=== PATIENT | female | born 1940 | race American Indian/Alaskan Native ===

== ENCOUNTER 2018-07-12 13:49 | Emergency (ER) | payer OTHER ==
[2018-07-12] MEDS ORDERED: Sodium Chloride 0.9% 500 ML IV ONE (14:37)
--- NOTE | 2018-07-12 14:37 | C.PDOC ---
History Of Present Illness 78 y/o female pt with hx of HTN, chronic knee pain, chronic cough and SHx smoking presents to the ER c/o abdominal pain and diarrhea for x4 days. Pt reports of worsening chronic knee pain and chronic coughing as she is smoker. Pt is a poor historian. Pt denies trauma, fever, SOB, chest pain or any other associated sx/complaints at this time. Time Seen by Provider: 07/12/18 13:56 Chief Complaint (Nursing): GI Problem History Per: Patient History/Exam Limitations: no limitations Onset/Duration Of Symptoms: Days (x4) Current Symptoms Are (Timing): Still Present Past Medical History Reviewed: Historical Data, Nursing Documentation, Vital Signs Vital Signs: Last Vital Signs Temp 98.2 F 07/12/18 13:59 Pulse 63 07/12/18 13:59 Resp 18 07/12/18 13:59 BP 173/96 H 07/12/18 13:59 Pulse Ox 98 07/12/18 13:59 - Medical History PMH: HTN, Hypercholesterolemia Other PMH: chronic cough and chronic knee pain Family History: States: No Known Family Hx - Social History Hx Tobacco Use: Yes Hx Alcohol Use: No Hx Substance Use: No - Immunization History Hx Tetanus Toxoid Vaccination: No Hx Influenza Vaccination: Yes Hx Pneumococcal Vaccination: No Review Of Systems Except As Marked, All Systems Reviewed And Found Negative. Constitutional: Negative for: Fever, Other (trauma) Cardiovascular: Negative for: Chest Pain Respiratory: Negative for: Shortness of Breath Gastrointestinal: Positive for: Abdominal Pain, Diarrhea Physical Exam - Physical Exam Appears: Non-toxic, No Acute Distress Skin: Warm, Diaphoretic Head: Normacephalic Eye(s): bilateral: Normal Inspection Throat: Normal Chest: Symmetrical Cardiovascular: Rhythm Regular Respiratory: Normal Breath Sounds Gastrointestinal/Abdominal: Bowel Sounds (normal; active), Soft, Tenderness (mild ), No Distention, No Guarding, No Rebound Extremity: Normal ROM (x4), Tenderness (mild knee; non focal ), No Pedal Edema, No Calf Tenderness, Capillary Refill (<2 sec), No Deformity, No Swelling Neurological/Psych: Oriented x3, Normal Speech, Normal Cognition, Normal Motor, Normal Sensation, No Other (neuro deficit) ED Course And Treatment - Laboratory Results Result Diagrams: 07/12/18 15:29 07/12/18 15:29 O2 Sat by Pulse Oximetry: 98 (RA) Pulse Ox Interpretation: Normal - Other Rad chest X-Ray: Read By Radiologist Interpretation: Accession No. : [id number]. Patient Name / ID : NAYAN CROWDER / [id number]. Exam Date : 07/12/2018 14:39:03 ( Approved ). Study Comment : Sex / Age : F / 78Y. Creator : Reza Parekh MD. Dictator : Reza Parekh MD. Industrial [employer] Servicer : Assistant Associate Professor : Reza Parekh MD. Approver2 : Report Date : 07/12/2018 15:20:37. My Comment : . Chest x-ray single frontal view. HISTORY: Chest pain. COMPARISON: None available. Findings: Biapical pleural thickening with upper lobe granulomatous changes. Moderate venous congestion. Patchy areas of nodular consolidation at the right lung base. Scattered areas of linear atelectasis seen at both lung bases. Small nodular densities within the right mid lung zone. Enlarged ectatic aorta. Cardiomegaly. Degenerative changes in the spine and shoulders. Impression: Biapical pleural thickening with upper lobe granulomatous changes. Moderate venous congestion. Patchy areas of nodular consolidation at the right lung base. Scattered areas of linear atelectasis seen at both lung bases. Small nodular densities within the right mid lung zone. Enlarged ectatic aorta. Cardiomegaly. Degenerative changes in the spine and shoulders. knee X-Ray: Read By Radiologist Interpretation: Accession No. : [id number]. Patient Name / ID : NAYAN CROWDER / [id number]. Exam Date : 07/12/2018 14:39:22 ( Approved ). Study Comment : Sex / Age : F / 78Y. Creator : Reza Parekh MD. Dictator : Reza Parekh MD. Industrial Gas Servicer : Assistant Associate Professor : Reza Parekh MD. Approver2 : Report Date : 07/12/2018 17:06:14. My Comment : . Bilateral knees four views. HISTORY: Chronic knee pain. Comparison: None available. Findings: Right knee: Severe medial compartment joint space narrowing with subchondral sclerosis, subchondral cyst formation, and articular surface remodeling. Severe patellofemoral compartment joint space narrowing with subchondral sclerosis and osteophytosis. Question loose body at the inferior aspect of the patellofemoral joint space. No gross suprapatellar joint effusion. Left knee: Severe medial compartment joint space narrowing with subchondral sclerosis and osteophytosis. Severe patellofemoral compartment joint space narrowing with subchondral sclerosis and osteophytosis. Enthesopathic change noted at the superior bony patella. Small loose osteochondral body at the superior aspect of the suprapatellar joint space. Vascular calcifications. Impression: Severe degenerative changes of the bilateral knees as described above. If pain persists, consider correlation with MRI. - CT Scan/US CT abdomen and pelvis Other Rad Studies (CT/US): Read By Radiologist, Radiology Report Reviewed CT/US Interpretation: Name:LAKESHA SPICER Exam Date:Jul 12, 2018 4:58:33 PM EDT. Modality Type:CT. Description:CT - CHEST, ABDOMEN & PELVIS. Gender:F Laterality:Not applicable. :38 Referring Physician:Clifford White (DO). EXAM: CT Chest with Intravenous Contrast. CT Abdomen and Pelvis with Intravenous Contrast. CLINICAL HISTORY: Cough, left side abd pain. TECHNIQUE: Axial computed tomography images of the chest, abdomen and pelvis with intravenous contrast. 0.00 mGy-cm. CONTRAST: With; 100MLS VISI 320. COMPARISON: None provided. FINDINGS: CHEST: LUNGS: There is mild patchy alveolar density as well as scarring both lower lungs. There is no suspicious mass or consolidation. PLEURAL SPACES: No evidence of pneumothorax. No pleural effusion. HEART: No cardiomegaly. No significant pericardial effusion. LYMPH NODES: No lymphadenopathy is evident. ABDOMEN AND PELVIS: LIVER: Unremarkable. No focal lesions. GALLBLADDER AND BILE DUCTS: Gallstone and distended gallbladder.. PANCREAS: Unremarkable. SPLEEN: Unremarkable. ADRENAL GLANDS: Unremarkable. KIDNEYS, URETERS, AND BLADDER: Unremarkable. No hydronephrosis or nephrolithiasis. No uterteral or bladder calculi. Moderately enlarged partially calcified fibroid uterus. Left ovarian cystic mass measuring 2.5 x 3.4 cm. STOMACH AND BOWEL: Unremarkable appearance of the stomach and bowel. No evidence of bowel obstruction. No evidence suggesting enteritis or colitis. Diverticular changes sigmoid and descending colon. APPENDIX: No evidence of acute appendicitis on CT examination. PERITONEUM: No free fluid. No free air. LYMPH NODES: No lymphadenopathy is evident. VASCULATURE: Advanced atherosclerotic change abdominal aorta and iliac vessels. BONES: There is advanced diffuse hypertrophic and degenerative changes thoracic and lumbosacral spine. IMPRESSION: Mild patchy alveolar density both lower lungs as well as scarring both lower lungs. Gallstone in a distended gallbladder. A moderately enlarged partially calcified fibroid uterus. Left ovarian cystic mass measuring 2.5 x 3.4 cm. Diverticular changes sigmoid and descending colon. Advanced atherosclerotic change abdominal aorta and iliac vessels. Veins hypertrophic and degenerative changes thoracic and lumbar spine. . Electronically signed on Jul 12, 2018 6:05:49 PM EDT by: Aubrey Mcgee M.D., Certified by [facility]BR, Diagnostic Radiology Medical Decision Making Medical Decision Making: ro acute abdominal pathology, pneumonia, fracture plans: -- chem labs -- blood work -- CXR -- Knee XR -- IV fluids -- Tylenol labs show no leukcytosis, no fever. ct shows gallstone. bedside us no e/o of choleysittis no wall thickening no sonographic hernández. neg hernández. no pericholec ysitic fluid. pt states pain improved. as pt lives by herself, i offered observation for PT eval, and further eval of her abdominal pain. she declines specifically requesting dc. she is notified of all incidental findings on ct and given ct report with specific instructions to f/u outpt with specialists. she verbalzies understadning. pt is seen taking po in nad in er. acute francisca unlikely. Disposition - Disposition Referrals: [facility] [Outside] [facility] [Outside] [facility] [Outside] Dung Gomez MD [Staff Provider] - Tuyet Rahman DO [Staff Provider] - Disposition: HOME/ ROUTINE Disposition Time: 18:00 Condition: STABLE Additional Instructions: please discuss all results with your doctor. you will need further testing as an outpatient. you may need biopsy of your ovary. you may need surgery for your gallbladder. please see specilaists as soon as soon as possible. return to any er with worsening. Instructions: Ovarian Cysts, Acute Abdomen (Belly Pain), Uterine Fibroids (DC), Gallstones (DC) Forms: Metaps (N[place]ien) - Clinical Impression Clinical Impression: Gallstone, Knee pain - Scribe Statement The provider has reviewed the documentation as recorded by the Joselito Vargas Do Provider Attestation: All medical record entries made by the Scribe were at my direction and personally dictated by me. I have reviewed the chart and agree that the record accurately reflects my personal performance of the history, physical exam, medical decision making, and the department course for this patient. I have also personally directed, reviewed, and agree with the discharge instructions and disposition.
[2018-07-12] MEDS ORDERED: Sodium Chloride 0.9% 1,000 ML ONE (15:23)
--- NOTE | 2018-07-12 15:24 | RAD ---
Chest x-ray single frontal view HISTORY: Chest pain. COMPARISON: None available. Findings: Biapical pleural thickening with upper lobe granulomatous changes. Moderate venous congestion. Patchy areas of nodular consolidation at the right lung base. Scattered areas of linear atelectasis seen at both lung bases. Small nodular densities within the right mid lung zone. Enlarged ectatic aorta. Cardiomegaly. Degenerative changes in the spine and shoulders. Impression: Biapical pleural thickening with upper lobe granulomatous changes. Moderate venous congestion. Patchy areas of nodular consolidation at the right lung base. Scattered areas of linear atelectasis seen at both lung bases. Small nodular densities within the right mid lung zone. Enlarged ectatic aorta. Cardiomegaly. Degenerative changes in the spine and shoulders.
[2018-07-12 15:36] LABS: BASO % 0.2 % (0.0-2.0); EOS # 0.1 K/uL (0.0-0.7); EOS % 1.1 % (0.0-4.0); HEMOGLOBIN 10.2 g/dL (11.0-16.0); LYMPH # 1.6 K/uL (1.0-4.3); MEAN CORPUSCULAR HEMOGLOBIN 29.4 pg (27.0-31.0); MEAN CORPUSCULAR HGB CONC 33.4 g/dL (33.0-37.0); MONO # 0.4 K/uL (0.0-0.8); MONO % 5.3 % (0.0-10.0); NEUT # 5.5 K/uL (1.8-7.0); NEUT % 72.4 % (50.0-75.0); NRBC % 0.1 % (0.0-2.0); RBC 3.48 Mil/uL (3.80-5.20); WHITE BLOOD COUNT 7.6 K/uL (4.8-10.8)
[2018-07-12 15:42] LABS: INR 1.2; PROTHROMBIN TIME 12.7 SECONDS (9.7-12.2)
[2018-07-12 15:46] LABS: ALB/GLOB RATIO 1.1 (1.0-2.1); BILIRUBIN,DIRECT 0.6 mg/dL (0.0-0.4); CALCIUM 9.4 mg/dl (8.6-10.4)
[2018-07-12 16:15] LABS: SQUAMOUS EPITHIAL 9 /hpf (0-5); URINE BACTERIA RARE (<OCC)
[2018-07-12 16:16] LABS: URINE BILIRUBIN NEGATIVE (NEGATIVE); URINE BLOOD NEGATIVE (NEGATIVE); URINE CLARITY Hazy (Clear); URINE COLOR Yellow (YELLOW); URINE GLUCOSE (UA) NORMAL (Normal); URINE LEUKOCYTE ESTERASE NEG Leu/uL (Negative); URINE PROTEIN 1+ mg/dL (NEGATIVE); URINE UROBILINOGEN NORMAL mg/dL (0.2-1.0)
[2018-07-12] MEDS ORDERED: Iodixanol 320 MG/ML 100 ML BOTTLE IV ONE (16:20)
--- NOTE | 2018-07-12 17:09 | RAD ---
Bilateral knees four views HISTORY: Chronic knee pain. Comparison: None available. Findings: Right knee: Severe medial compartment joint space narrowing with subchondral sclerosis, subchondral cyst formation, and articular surface remodeling. Severe patellofemoral compartment joint space narrowing with subchondral sclerosis and osteophytosis. Question loose body at the inferior aspect of the patellofemoral joint space. No gross suprapatellar joint effusion. Left knee: Severe medial compartment joint space narrowing with subchondral sclerosis and osteophytosis. Severe patellofemoral compartment joint space narrowing with subchondral sclerosis and osteophytosis. Enthesopathic change noted at the superior bony patella. Small loose osteochondral body at the superior aspect of the suprapatellar joint space. Vascular calcifications. Impression: Severe degenerative changes of the bilateral knees as described above. If pain persists, consider correlation with MRI.
[2018-07-12 22:19] VITALS: RESP 18
[2018-07-12] MEDS ORDERED: Labetalol 25mg/5ml Syringe IVP STA (22:46)
[2018-07-12] MEDS ORDERED: Labetalol 5mg/ml (4ml) ONE (22:52)
[2018-07-12 23:03] VITALS: PULSE 66
[2018-07-13 03:18] VITALS: BP 155/81; TEMP 97.8
--- NOTE | 2018-07-13 09:46 | CT ---
CT chest abdomen and pelvis HISTORY: Cough. Left-sided abdominal pain. COMPARISON: None available. TECHNIQUE: Multiple contiguous axial images were performed through the chest abdomen and pelvis with the use of intravenous contrast. Subsequently, sagittal and coronal reformatted images were obtained. This CT exam was performed using one or more of the following dose reduction techniques: Automated exposure control, adjustment of the mA and/or kV according to patient size, and/or use of iterative reconstruction technique. Findings: Trachea thru central airways are patent. Right lung: Scattered atelectasis throughout the right lung. In addition, there are few patchy areas of consolidative change seen within the right middle and lower lobes. Left lung: Scattered areas of atelectasis in the left lung. Few patchy areas of ground-glass consolidation seen within the lingula and left lower lobes. No significant axillary adenopathy. Bulky heterogeneous thyroid gland with a 7 millimeter right thyroid nodule. Additional nodularity more inferiorly in the thyroid gland. Correlation with thyroid ultrasound may be helpful. Atherosclerotic calcification and plaque in the aorta. Aneurysmal prominence of the ascending thoracic aorta measuring 3.4 centimeters. 2.1 centimeter precarinal lymph node. No significant hilar adenopathy. Coronary calcifications. No pleural or pericardial effusion. Degenerative changes in the spine. CT abdomen and pelvis: Mild intrahepatic biliary ductal dilatation. Prominent liver. Cholelithiasis with prominent gallbladder calculus measuring up to 2.3 centimeters. Spleen is preserved. Nodular thickening of the adrenal glands. Pancreas is preserved. Moderate hiatal hernia. Few distended loops of small bowel seen within the mid abdomen which may represent a mild enteritis. Right kidney: Mild fullness of the right renal collecting system and ureter. Left Kidney: Mild fullness of the left renal collecting system and ureter. Distended urinary bladder. Prominent enlarged heterogeneous and bulky uterus with multiple prominent calcified fibroid lesions. Prominence of the left adnexa measuring up to 3.5 centimeters with a suggestion of a left adnexal cyst. Correlation with pelvic ultrasound may be helpful. Colonic diverticulosis. Fecal retention in the colon. Appendix is within normal limits. Atherosclerotic calcification and plaque within the abdominal aorta. Shotty para-aortic and inguinal lymph nodes. Shotty mesenteric lymph nodes. Degenerative changes in the spine and bilateral hips. Mild anterolisthesis of L4 on L5. 9 millimeters subchondral cyst at the lateral aspect of the proximal femur. Impression: 1. Cholelithiasis with prominent gallbladder calculus measuring up to 2.3 centimeters. 2. Scattered areas of consolidation within both lungs as described above. Clinical correlation. 3. 2.1 centimeter precarinal lymph node. 4. Nodular thickening of the adrenal glands. 5. Moderate hiatal hernia. 6. Few distended loops of small bowel seen within the mid abdomen which may represent a mild enteritis. 7. Prominent enlarged heterogeneous and bulky uterus with multiple prominent calcified fibroid lesions. Prominence of the left adnexa measuring up to 3.5 centimeters with a suggestion of a left adnexal cyst. Correlation with pelvic ultrasound may be helpful. 8. Bulky heterogeneous thyroid gland with a 7 millimeter right thyroid nodule. Additional nodularity more inferiorly in the thyroid gland. Correlation with thyroid ultrasound may be helpful. Additional findings as above. A preliminary report was generated at 6:05 p.m. on 07/12/[address] Aubrey Mcgee from [employer].
[2018-07-13 13:19] VITALS: O2SAT 98
== END 2018-07-13 04:51 | disposition home or self-care (01) ==
LOC: C.ER 13:49
DX: K80.20 Calculus of gallbladder without cholecystitis without obstruction (principal); M25.569 Pain in unspecified knee; E78.00 Pure hypercholesterolemia, unspecified; I10 Essential (primary) hypertension; Z72.0 Tobacco use
CPT/HCPCS: 71045; 71260; 73562; 74177; 80053; 81001; 82248; 83690; 85025; 85610; 85730; 96374; 96375; 99285; J1885; J7040; Q9967